=== PATIENT | male | born 1970 | race Caucasian/White ===

== ENCOUNTER 2018-10-04 10:03 | Emergency (ER) | payer BC, SELFPAY ==
[2018-10-04 10:05] VITALS: BP 156/88; PULSE 69; RESP 18; TEMP 36.1; O2SAT 99; BMI 40.8
--- NOTE | 2018-10-04 10:12 | EKG12_ITS ---
Test Reason : HYPOGLYCEMIA Blood Pressure : / mmHG Vent. Rate : 061 BPM Atrial Rate : 061 BPM P-R Int : 146 ms QRS Dur : 086 ms QT Int : 410 ms P-R-T Axes : 053 -02 040 degrees QTc Int : 412 ms Normal sinus rhythm Normal ECG Confirmed by TIGIST THURMAN, MAYA ([id number]), clinical editor HARISH CRESPO ([id number]) on 10/09/2018 9:48:15 AM Referred By: BHASKAR Confirmed By:MAYA ESCOTO MD
--- NOTE | 2018-10-04 10:12 | RAD_ITS ---
STUDY: X-RAY CHEST REASON FOR EXAM: Male, 48 years old. Chest pain. TECHNIQUE: Single AP portable view of the chest. COMPARISON: None. FINDINGS: The lungs are clear and expanded. Scattered calcified granulomas. There is no demonstrated pleural abnormality. Normal size heart. Normal mediastinum and jeramie. Normal visualized pulmonary arteries. Normal visualized aortic arch and descending thoracic aorta. There is a dextroscoliosis of the thoracic spine. The anterior aspect of the right third rib is bifid. There is no demonstrated abnormality of the visualized soft tissue structures of the upper abdomen. RAD/Chest PA and Lateral IMPRESSION: Normal x-ray examination of the chest. Electronically Signed: Tai Pierce MD at 11:06 EST , Service support ,
--- NOTE | 2018-10-04 10:12 | CT_ITS ---
STUDY: CT BRAIN WITHOUT CONTRAST REASON FOR EXAM: Male, 48 years old. Headaches. Patient has a history of Saadia [place]. RADIATION DOSAGE (If Supplied By Facility): CTDIvol = ( 44.99 ) mGy, DLP = ( 812.98 ) mGycm TECHNIQUE: Transaxial CT imaging of the brain was performed without administration of intravenous contrast material. Individualized dose optimization techniques were used for this CT. COMPARISON: None. FINDINGS: Normal soft tissue structures. Normal calvarium. Normal size ventricles and extra-axial spaces for the patient's age. Normal white matter tracts of the cerebral hemispheres. Normal basal ganglia and thalami. Normal brainstem. Normal cerebellum. There is no intracranial hemorrhage. There are no findings of an acute ischemic infarction. Mild mucosal thickening along the inferior lateral aspect of the right maxillary sinus. CT/Brain/Head without Contrast IMPRESSION: Normal unenhanced CT scan of the brain. Electronically Signed: Tai Pierce MD at 10:54 EST , Service support ,
[2018-10-04 10:43] LABS: Absolute Lymphocyte Count 1.16 X10^3/ul (0.83-4.51); Absolute Neutrophil Count 4.3 X10^3/uL (2.0-7.7); Basophil# 0.01 X10^3/uL; Basophil% 0.2 % (0-1); Eosinophil# 0.06 X10^3/uL; Hematocrit 48.5 % (40-54); Lymphocyte # 1.16 X10^3/ul (4.0); Lymphocyte % 19.8 % (19-41); Mean Platelet Vol. 10.5 fl (6.2-12.0); Monocyte# 0.36 X10^3/uL; Monocyte% 6.2 % (0-10); Neutrophil # 4.25 X10^3/uL (2.7-7.7); Neutrophil % 72.6 % (47-70); Platelet Count 192 K/mm3 (150-450); RBC Distribution Width CV 13.6 % (11.6-14.6); RBC Distribution Width SD 46.4 fl (35.1-43.9); Red Blood Count 5.16 M/mm3 (4.6-6.2); White Blood Count 5.9 K/mm3 (4.4-11.0)
[2018-10-04 10:47] LABS: POSITIVE COUNT NO; POSITIVE DIFFERENTIAL NO; POSITIVE MORPHOLOGY NO
[2018-10-04 11:00] LABS: AST(SGOT) 23 U/L (15-37); Alanine Aminotransfer ALT/SGPT 43 U/L (16-61); Albumin, Serum 3.6 g/dL (3.2-5.0); Alkaline Phosphatase 56 U/L (45-117); Anion Gap 3 (5-15); BUN 15 mg/dL (7-18); BUN/Creat Ratio 19.1 RATIO (10-20); Calcium,Total 8.3 mg/dL (8.5-10.1); Chloride 109 mmol/L (98-107); Creatinine, Serum 0.78 mg/dL (0.70-1.30); EST Glomerular Filtration Rate 113 mL/min (>60); Est Glom Filt Rate - Afr Amer 136 mL/min (>60); Globulin 3.6 g/dL (2.2-4.2); Glucose 90 mg/dL (74-106); Potassium 4.2 mmol/L (3.5-5.1); Protein, Total 7.2 g/dL (6.4-8.2); Sodium Level 139 mmol/L (136-145)
--- NOTE | 2018-10-04 11:01 | ED.VISSUMM ---
- ER Visit Summary Date of Service: 10/04/18 Chief Complaint: Concerned that my blood glucose could be high History of Present Illness: The patient is a 48 M with a history of hypoglycemia presents with concern for hyperglycemia. He states that yesterday he had a migraine headache throughout the day but it was not the worst headache of his life nor was it different in character from his usual migraine headache. He denies any recent falls or head trauma. He felt fairly fatigued in the evening when he went to bed and felt more sweaty than usual. He did not have chest pain or shortness of breath however. The symptoms were still present this morning when he was at work so he came in to be evaluated. He states that usually his blood glucose is quite low but he is worried that it might be high and that he could be developing diabetes. Physical Examination: Vitals are within normal limits. He is not in distress. Neck is supple. Heart tones are regular and without murmur. Lungs are clear bilaterally. Abdomen is soft and nontender. No focal or lateralizing neuro findings. Test Results: Labs are within normal limits. No evidence of significant hyperglycemia. CT brain negative. Chest x-ray unremarkable and troponin negative after well over 12 hours of symptoms. EKG unremarkable. He looks well. Exact cause of his symptoms unclear but given his well appearance, I feel he can safely be discharged home with close follow-up. He is feeling much better on reexamination. Emergency Department Course and Treatment: Treatment Plan: Follow-up closely with his doctor Disposition: Home, stable Impression: Initial encounter general weakness uncertain etiology This note was generated with [employer] dictation software. It may contain incorrect words, spelling, and punctuation that were not noted in review of the chart prior to signing ED Disposition - Plan for ED Patient: Instructions: ED Weakness [facility] Referrals: NOT,DEFINED [NON-STAFF] -
[2018-10-04 11:35] VITALS: BP 150/92; PULSE 66; RESP 18; O2SAT 99
== END 2018-10-04 11:35 | disposition home or self-care (01) ==
LOC: ED 11:14
PROVIDERS: Emergency Provider Emergency Medicine
DX: R53.1 Weakness (principal)
CPT/HCPCS: 70450; 71046; 80053; 84484; 85025; 87804; 93005; 96360; 99283; J7030; J7040

== ENCOUNTER 2019-02-21 10:29 | Emergency (ER) | payer BC, SELFPAY ==
[2019-02-21 10:30] VITALS: BP 138/96; PULSE 70; RESP 18; TEMP 36.4; O2SAT 97; BMI 40.3
--- NOTE | 2019-02-21 10:46 | ED.DCSUM_ITS ---
- ER Visit Summary Date of Service: 02/21/19 Chief Complaint: Weakness, body aches History of Present Illness: The patient is a 48 M who says he has weakness and body aches for the past 3 days. He states he is just not felt well. He has had muscle aches in his neck and back. He has had low-grade temperature elevations as well. He also feels like his fingers and toes are cold but when he touches them they are warm to the touch. He has felt nauseous without vomiting. He has taken nothing for this at home. He thought that he may have had the flu. His only medical history is low vitamin D. Physical Examination: Vital signs reviewed. HEENT exam unremarkable. Heart is regular rate and rhythm without murmurs. Lungs are clear to auscultation. Abdomen is soft and nontender. He does have some left cervical paraspinal muscular tenderness. There is no midline tenderness. Extremities reveal no edema. Skin exam normal. Neurologic exam normal. Test Results: Laboratory studies are normal Emergency Department Course and Treatment: Patient was given normal saline. He feels much better. This is likely a viral illness. He will increase hydration and use NSAIDs at home. He will follow-up with his PCP Treatment Plan: [] Disposition: Discharge Impression: Viral illness This note was generated with [employer] dictation software. It may contain incorrect words, spelling, and punctuation that were not noted in review of the chart prior to signing ED Disposition - Plan for ED Patient: Referrals: Care Physician,No Primary [NON-STAFF] -
[2019-02-21 11:18] VITALS: TEMP 36.4
[2019-02-21 11:48] LABS: Absolute Lymphocyte Count 1.12 X10^3/ul (0.83-4.51); Absolute Neutrophil Count 3.3 X10^3/uL (2.0-7.7); Basophil# 0.02 X10^3/uL; Basophil% 0.4 % (0-1); Eosinophil# 0.08 X10^3/uL; Eosinophils% 1.6 % (0-5); Hematocrit 45.9 % (40-54); Hemoglobin 15.4 g/dl (13.0-16.5); Lymphocyte # 1.12 X10^3/ul (4.0); Mean Corp Hgb Conc 33.6 g/gl (32-36); Mean Corpuscular Hgb 30.9 pg (27.0-32.0); Mean Platelet Vol. 10.2 fl (6.2-12.0); Monocyte# 0.35 X10^3/uL; Monocyte% 7.2 % (0-10); Neutrophil % 67.6 % (47-70); Platelet Count 170 K/mm3 (150-450); RBC Distribution Width CV 13.4 % (11.6-14.6); Red Blood Count 4.99 M/mm3 (4.6-6.2); White Blood Count 4.9 K/mm3 (4.4-11.0)
[2019-02-21 11:49] LABS: POSITIVE COUNT NO; POSITIVE DIFFERENTIAL NO; POSITIVE MORPHOLOGY NO
[2019-02-21] MEDS: Ketorolac 15 MG/ML Vial IV (11:49)
[2019-02-21] MEDS: 0.9% Normal Saline 1,000 ML 999 ML IV (11:49)
[2019-02-21 11:52] LABS: Anion Gap 8 (5-15); BUN 16 mg/dL (7-18); BUN/Creat Ratio 20.6 RATIO (10-20); Calcium,Total 8.5 mg/dL (8.5-10.1); Chloride 107 mmol/L (98-107); Creatinine, Serum 0.78 mg/dL (0.70-1.30); EST Glomerular Filtration Rate 114 mL/min (>60); Est Glom Filt Rate - Afr Amer 138 mL/min (>60); Glucose 98 mg/dL (74-106); Potassium 4.2 mmol/L (3.5-5.1); Sodium Level 142 mmol/L (136-145)
[2019-02-21 11:59] VITALS: TEMP 36.9
--- NOTE | 2019-02-21 11:59 | ED.DEP ---
ED Disposition - Plan for ED Patient: Disposition: Home or Assisted Living Instructions: VIRAL SYNDROME (Adult) Referrals: Care Physician,No Primary [NON-STAFF] -
[2019-02-21 12:20] VITALS: PULSE 57; RESP 16; O2SAT 97
== END 2019-02-21 12:24 | disposition home or self-care (01) ==
PROVIDERS: Emergency Provider Emergency Medicine; Family Provider Nurse Practitioner Family; PCP Nurse Practitioner Family
DX: B34.9 Viral infection, unspecified (principal); M79.10 Myalgia, unspecified site; R19.7 Diarrhea, unspecified; R11.0 Nausea; M54.2 Cervicalgia; Z72.0 Tobacco use
CPT/HCPCS: 80048; 85025; 96360; 99283; J7030; A4216

== ENCOUNTER → 2020-03-05 | Outpatient (CLI) | payer SELFPAY ==
[2020-03-04 10:21] VITALS: BMI 40.3
== END | disposition home or self-care (01) ==
LOC: LABSPEC 10:58
PROVIDERS: PCP Nurse Practitioner Family; Referring Provider Physician Assistant Surgical; Visit Provider Physician Assistant Surgical
DX: Z20.828 Contact with and (suspected) exposure to other viral communicable diseases (principal)
CPT/HCPCS: 87635; G2023; U0003

== ENCOUNTER → 2020-05-19 09:54 | Outpatient (CLI) | payer SELFPAY ==
[2020-05-19 07:48] VITALS: BMI 40.3
== END ==
LOC: MTDU 09:54
PROVIDERS: PCP Nurse Practitioner Family; Referring Provider Physician Assistant; Visit Provider Physician Assistant
DX: Z20.828 Contact with and (suspected) exposure to other viral communicable diseases (principal)
CPT/HCPCS: 87635; C9803; U0003

== ENCOUNTER 2021-09-08 13:05 | Outpatient (CLI) | payer MEDICARE, SELFPAY | END 2021-09-08 23:59 | disposition short-term general hospital (02) | LOC: LABSPEC 13:06 | PROVIDERS: Visit Provider Physician Assistant Surgical | DX: U07.1 COVID-19 (principal) | CPT/HCPCS: 87635; U0003; U0005 ==

== ENCOUNTER 2024-06-01 11:53 | Emergency (ER) | payer SELFPAY ==
[2024-06-01 11:54] VITALS: BP 141/100; PULSE 76; RESP 15; TEMP 36.7; O2SAT 99; BMI 44.0
[2024-06-01 11:56] VITALS: BP 141/100; PULSE 76; RESP 15; TEMP 36.7; O2SAT 99
--- NOTE | 2024-06-01 13:56 | ED.RN ---
Pt states he is leaving, I think maybe I just have stomach bug, states he doesn't want to wait for ED room any longer. This RN advised pt to return for any concerns, pt voices understanding.
== END 2024-06-01 13:45 | disposition left against medical advice (07) ==
LOC: ED 13:59
DX: Z53.21 Procedure and treatment not carried out due to patient leaving prior to being seen by health care provider (principal)
CPT/HCPCS: 99281

== ENCOUNTER 2024-08-27 04:43 | Emergency (ER) | payer SELFPAY ==
[2024-08-27 04:44] VITALS: BP 153/84; PULSE 58; RESP 16; TEMP 36.6; O2SAT 98; BMI 40.9
[2024-08-27 04:46] VITALS: BP 149/87; PULSE 58; RESP 16; TEMP 36.6; O2SAT 98
--- NOTE | 2024-08-27 04:56 | ED.VIS.GI ---
HPI HPI - GI History of Present Illness Chief Complaint: Diarrhea Informant: patient Nausea/Vomiting/Emesis GI Symptom: Negative for Nausea or Vomiting Diarrhea/Melena/Hematochezia GI Symptom: Positive for Diarrhea; Negative for Melena or Hematochezia Onset: Yesterday Stool Quality: Positive for Watery Severity: Severe (x15-20) Narrative Narrative: 54-year-old male has been having acute diarrhea for the past 36 hours, no fevers, chills, abdominal pain/discomfort, nausea, vomiting, blood in the stool, or melena. He denies history of C. difficile, recent antibiotics, travel out of the region, suspicious food intake including raw meats or fish. 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 Denies any new sources of water ingestion or recent camping. 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 Stomach ulcer Shoulder pain High blood pressure Home Medications ?Medication ?Instructions ?Recorded ?Last Taken ?Type cholecalciferol (vitamin D3) 625 25,000 unit PO QWEEK 11/26/19 Unknown History mcg (25,000 unit) capsule multivitamin 1 cap PO DAILY 11/26/19 Unknown History ciprofloxacin HCl 500 mg tablet 500 mg PO BID #6 TABLETS 08/27/24 Unknown Rx Allergy/AdvReac Type Severity Reaction Status Date / Time acetaminophen (From Vicks Allergy Hives Verified 08/27/24 04:44 DayQuil) bee venom protein (honey bee) Allergy Anaphylaxis Verified 08/27/24 04:44 chlorpheniramine (From [facility]icks Allergy Hives Verified 08/27/24 04:44 DayQuil) dextromethorphan (From [facility]icks Allergy Hives Verified 08/27/24 04:44 DayQuil) doxylamine (From [facility]icks Allergy Hives Verified 08/27/24 04:44 NyQuil Cold/Flu Liquicap) guaifenesin (From [facility]icks Allergy Hives Verified 08/27/24 04:44 DayQuil) iodine Allergy Anaphylaxis Verified 08/27/24 04:44 phenylpropanolamine (From Allergy Hives Verified 08/27/24 04:44 Vicks DayQuil) pseudoephedrine (From [facility]icks Allergy Hives Verified 08/27/24 04:44 DayQuil) Family History (Updated 09/04/21 @ 10:37 by Eolise Salomon RN) Other Cancer Heart disease Social History Smoking Status: Never smoker alcohol intake: never ROS ROS ED Constitutional Constitutional ED: Denies chills or fever(s) Eyes Eyes: Denies change in vision or diplopia ENT ENT ED: Denies rhinorrhea or sore throat Cardiovascular Cardiovascular: Denies chest pain, edema, lightheadedness, palpitations or syncope Respiratory/Chest Respiratory/Chest: Denies cough or dyspnea Gastrointestinal Gastrointestinal: Reports diarrhea; Denies abdominal pain, hematochezia, melena, nausea or vomiting Genitourinary Genitourinary ED: Denies dysuria or hematuria Musculoskeletal Musculoskeletal: Denies back pain or neck pain Integumentary Denies abscess or rash Neurologic Neurologic: Denies headache(s), paresthesias or weakness Psychiatric Psychiatric: Denies anxiety or suicidal thoughts EXAM Physical Exam Const Vital Signs: 08/27/24 04:44 08/27/24 04:46 Temperature 98 F 98 F Temperature Source Temporal Temporal Pulse Rate 58 L 58 L Respiratory Rate 16 16 Blood Pressure 153/84 H 149/87 H Blood Pressure Mean 107 107 Pulse Ox 98 98 Oxygen Delivery Method Room Air Room Air Positive well nourished, well developed and obese General Appearance ED: well developed and NAD Nutritional Appearance: obese HEENT Reports moist mucous membranes normocephalic and atraumatic Eyes PERRL and EOMs intact bilaterally Neck full ROM and supple Resp normal respiratory effort and clear to auscultation bilaterally Cardio regular rate, regular rhythm and no murmurs Rate: Negative for tachycardic GI non-tender and non-distended Auscultation: normoactive bowel sounds Palpation: soft Back/Spine no CVA tenderness General Back: other FROM Extremity normal to inspection General Extremety ED: Negative for edema, pulses abnormal or tenderness General Extremity: Negative for edema or pulses abnormal Neuro oriented x3, CN's II-XII intact bilaterally and no sensory deficits noted Sensorium / Orientation: awake and alert Motor Exam: strength 5/5 throughout Skin no rashes or lesions noted and no wounds MDM MDM MDM Narrative Medical decision making narrative: Patient states he has been drinking plenty of water, more than usual because of this, he does not have systemic symptoms other than the diarrhea, he is not tachycardic, and he has no orthostatic symptoms. Given this, I do not think we need to necessarily do blood work. I am suspicious that this is infectious in etiology, however the differential they are still includes viral, bacterial etiologies including C. difficile. 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 He was able to provide specimen here so we did send some stool studies. Not all of them will return this morning as the patient presents here at 4:30 AM. The lab actually performed a seated test which is negative, and the fecal white blood cell smear which is positive, suggesting possible bacterial etiology. In context of C. difficile being negative, I am comfortable trying him on a 3-day course of ciprofloxacin to see if that helps. The enteric bacterial panel is sent and will be done on the neck shift, and the ova and parasite exam is a send out and will not be done today. Patient understanding of this, and he is asking for a work note which was given as well. Discharge Plan Triage Chief Complaint: Diarrhea ED Provider: Khoi Molina Dx/Rx/DC Orders Clinical Impression: Acute infectious diarrhea Instructions: ED Diarrhea, Unknown Cause Prescriptions: New ciprofloxacin HCl 500 mg tablet 500 mg PO BID Qty: 6 0RF No Action multivitamin Capsule 1 cap PO DAILY cholecalciferol (vitamin D3) 25,000 unit capsule 25,000 unit PO QWEEK Stand Alone Forms: ED Work / School Excuse Primary Care Provider: Care Physician,No Primary Referrals: Melvi Orta DO Sh[facility] - 1 Week if not improving Print Language: Spanish Disposition Disposition: Home, Self Care
[2024-08-27 06:55] VITALS: BP 139/74; PULSE 74; RESP 16; O2SAT 98
--- NOTE | 2024-08-27 08:35 | ED.RN ---
Pt was called and given results of stool being pos for norovirus. Pt was instructed on using bleach to clean bathrooms and washing hands with soap and water. Pt works at the [employer] and he was advised to call them and see what their protocol is.
== END 2024-08-27 06:56 | disposition home or self-care (01) ==
PROVIDERS: Emergency Provider Emergency Medicine; Visit Provider Emergency Medicine
DX: A09 Infectious gastroenteritis and colitis, unspecified (principal); Z68.41 Body mass index [BMI] 40.0-44.9, adult; E66.9 Obesity, unspecified
CPT/HCPCS: 83630; 87177; 87209; 87493; 87506; 99282

== ENCOUNTER 2024-10-01 04:58 | Emergency (ER) | payer SELFPAY ==
[2024-10-01 04:59] VITALS: BP 150/88; PULSE 73; RESP 18; TEMP 37.3; O2SAT 99; BMI 39.7
--- NOTE | 2024-10-01 05:27 | RAD_ITS ---
PROCEDURE: CHEST PA AND LATERAL REASON FOR EXAM: Cough. Shortness of breath x2 days TECHNIQUE: Frontal and lateral views of the chest. COMPARISON: None. FINDINGS: Lungs are well aerated. Minimal atelectasis within the right lung base. No focal airspace consolidation, pneumothorax or pleural effusion is seen. Few tiny calcified granulomas. Heart size and great vessels are within normal limits. Slight dextrocurvature involving the midthoracic spine. Minimal spondylotic changes involving the lower thoracic spine. Osseous thorax is intact. RAD/Chest PA and Lateral IMPRESSION: No acute cardiopulmonary process identified. Reading Location: [facility]
[2024-10-01] MEDS: Benzonatate 100 MG Capsule 200 MG PO (05:35)
[2024-10-01] MEDS: dexAMETHasone 10 MG/ML Vial PO.IVFORM (05:35)
--- NOTE | 2024-10-01 06:33 | EDS_ITS ---
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 He reports he has had 2 to 3 days of fevers and chills coupled with nasal congestion sore throat cough shortness of breath and diarrhea. 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 Hay fever Stomach ulcer Shoulder pain High blood pressure Home Medications ?Medication ?Instructions ?Recorded ?Last Taken ?Type NK 10/01/24 Unknown History Allergy/AdvReac Type Severity Reaction Status Date / Time acetaminophen (From [facility] Allergy Hives Verified 10/01/24 04:59 DayQuil) bee venom protein (honey bee) Allergy Anaphylaxis Verified 10/01/24 04:59 chlorpheniramine (From [facility] Allergy Hives Verified 10/01/24 04:59 DayQuil) dextromethorphan (From [facility] Allergy Hives Verified 10/01/24 04:59 DayQuil) doxylamine (From [facility] Allergy Hives Verified 10/01/24 04:59 NyQuil Cold/Flu Liquicap) guaifenesin (From [facility] Allergy Hives Verified 10/01/24 04:59 DayQuil) iodine Allergy Anaphylaxis Verified 10/01/24 04:59 phenylpropanolamine (From Allergy Hives Verified 10/01/24 04:59 Vicks DayQuil) pseudoephedrine (From [facility] Allergy Hives Verified 10/01/24 04:59 DayQuil) Family History (Updated 09/04/21 @ 10:37 by Eloise Salomon RN) Other Cancer Heart disease Social History Smoking Status: Current every day smoker tobacco type: cigarettes alcohol intake: never ROS ROS ED Constitutional Constitutional ED: Reports chills, fever(s) and subjective Eyes Eyes: Denies blurry vision or change in vision ENT ENT ED: Reports rhinorrhea and sore throat Respiratory/Chest Respiratory/Chest: Reports cough and dyspnea Gastrointestinal Gastrointestinal: Reports diarrhea; Denies abdominal pain, nausea or vomiting Musculoskeletal Musculoskeletal: Reports myalgias Integumentary Denies rash Neurologic Neurologic: Reports headache(s) Allergic/Immunologic Allergic/Immunologic ED: Denies mouth swelling or tongue swelling EXAM Physical Exam Const Vital Signs: 10/01/24 04:59 10/01/24 05:03 10/01/24 06:48 Temperature 99.2 F H 99.8 F H Temperature Source Oral Pulse Rate 73 66 Respiratory Rate 18 18 Respiratory Effort Normal Non-Labored Respiratory Pattern Normal Blood Pressure 150/88 H 138/81 H Blood Pressure Mean 108 100 Pulse Ox 99 97 Oxygen Delivery Method Room Air Positive well nourished, well developed and obese General Appearance ED: well developed; Negative for pallor Nutritional Appearance: obese HEENT HEENT Narrative: Nasal mucosa is hyperemic and boggy There is cobblestoning noted in the posterior pharynx consistent with sinus drainage without airway edema or compromise Eyes PERRL and EOMs intact bilaterally General Eye ED: Negative for scleral icterus Neck supple and no JVD Chest Wall palpation of chest normal Resp Resp Narrative: Breath sounds are diminished throughout with slight accessory muscle use. There is diffuse expiratory wheeze with faint rhonchi in the bilateral bases. No grunting stridor retractions or tachypnea noted Cardio regular rate and regular rhythm GI non-tender, non-distended and no masses Auscultation: hyperactive bowel sounds Palpation: soft Extremity normal to inspection Extremity Narrative: No asymmetric edema no pitting edema negative Homans' sign bilaterally Neuro oriented x3, CN's II-XII intact bilaterally and no sensory deficits noted Sensorium / Orientation: alert Motor Exam: strength 5/5 throughout Psych mental status grossly normal Skin no rashes or lesions noted General Skin Exam: Negative for jaundice or pallor MDM MDM MDM Narrative Medical decision making narrative: Patient arrived to the ER hypertensive and with a low-grade fever but was satting in the mid to high 90s on room air. Constellation of symptoms and exposure is most consistent for viral infection such as COVID versus influenza versus RSV. There is also potential for pneumonia. Despite his report of diarrhea it is mild in nature and he does not have physical exam findings concerning for dehydration and therefore I have low concern for acute kidney injury or severe electrolyte abnormality and do not feel the need for blood studies. Patient's chest x-ray revealed no acute lung pathology but viral swab was positive for both COVID and influenza. At this time the patient is not hypoxic he is not in respiratory distress he is not requiring supplemental oxygen and vitals are overall stable and therefore there is no need for admission or further workup and he is otherwise safe for discharge History & Record Review Discussion w/independent historian: Patient Radiography Diagnostic Testing: Clinical Impression(s) from Imaging Studies Chest X-Ray 10/01/24 05:27 IMPRESSION: No acute cardiopulmonary process identified. Reading Location: [facility] Chest x-ray as interpreted by the emergency medicine physician reveals no acute infiltrate pneumothorax or pleural effusion Discharge Plan Triage Chief Complaint: Cold Sx ED Provider: Arias Lua Dx/Rx/DC Orders Clinical Impression: COVID-19, Influenza A, Diarrhea, Hypertension Instructions: Coronavirus Disease 2019 (COVID-19): Caring for Yourself or Others, ED Influenza (Adult) Prescriptions: No Action NK Stand Alone Forms: ED Work / School Excuse Primary Care Provider: Care Physician,No Primary Referrals: Umberto Donald MD [Med Staff - Active Staff] - Care Physician,No Primary [Primary Care Provider] - Activity Restrictions/Additional Instructions: You tested positive for both influenza A and COVID-19. Continue with Tylenol and/or Motrin for fever control and keep yourself well-hydrated. If you have any further concerns or for like symptoms are worsening please return to the ER for repeat evaluation Print Language: Arabic Disposition Disposition: Home, Self Care Discharge Date/Time: 10/01/24 06:50
[2024-10-01 06:48] VITALS: BP 138/81; PULSE 66; RESP 18; TEMP 37.7; O2SAT 97
== END 2024-10-01 06:50 | disposition home or self-care (01) ==
PROVIDERS: Emergency Provider Emergency Medicine; Visit Provider Emergency Medicine
DX: U07.1 COVID-19 (principal); J10.1 Influenza due to other identified influenza virus with other respiratory manifestations; I10 Essential (primary) hypertension; F17.210 Nicotine dependence, cigarettes, uncomplicated; E66.9 Obesity, unspecified; Z68.39 Body mass index [BMI] 39.0-39.9, adult
CPT/HCPCS: 71046; 87631; 99282